=== PATIENT | female | born 1995 | race Caucasian/White ===

== ENCOUNTER 2017-11-07 18:22 | Emergency (ER) | payer BC ==
[2017-11-07 18:35] VITALS: BP 124/90; PULSE 95; TEMP 98.4; BMI 30.9
--- NOTE | 2017-11-07 19:05 | PDOC ---
History of Present Illness - General Chief Complaint: Cold Symptoms Stated Complaint: COLD SYMPTOMS Time Seen by Provider: 11/07/17 18:49 History Source: Patient Exam Limitations: No Limitations - History of Present Illness Initial Comments: CHIEF COMPLAINT: 21 y/o afebrile female c/o flu like symptoms that started today. HISTORY OF PRESENT ILLNESS: The patient states that today, out of nowhere, she all of a sudden felt chills and body aches all over. She states she has a slight cough and sore throat. She took theraflu 2 hours ago. She denies earache , runny nose, n/v/d, CP, SOB, abd pain. Past History - Past Medical History Allergies/Adverse Reactions: Allergies Allergy/AdvReac Type Severity Reaction Status Date / Time No Known Allergies Allergy Verified 11/07/17 18:29 Home Medications: Ambulatory Orders Oseltamivir Phosphate [Tamiflu -] 75 mg PO BID #10 capsule 11/07/17 Asthma: No Cancer: No Cardiac Disorders: No COPD: No Diabetes: No HTN: No Seizures: No Thyroid Disease: No - Immunization History Immunization Up to Date: Yes - Suicide/Smoking/Psychosocial Hx Smoking Status: No Smoking History: Former smoker Have you smoked in the past 12 months: Yes Number of Cigarettes Smoked Daily: 3 If you are a former smoker, when did you quit?: 07/2014 Information on smoking cessation initiated: No Hx Alcohol Use: No Drug/Substance Use Hx: No Hx Substance Use Treatment: No Review of Systems - Review of Systems Able to Perform ROS?: Yes Constitutional: Yes: Chills, Fever, Other (body aches) HEENTM: Yes: Throat Pain. No: Ear Pain, Ear Discharge, Nose Congestion, Difficulty Swallowing Respiratory: Yes: Cough. No: Shortness of Breath, Wheezing, Productive cough ABD/GI: No: Symptoms Reported *Physical Exam - Vital Signs Last Vital Signs Temp Pulse Resp BP Pulse Ox 98.4 F 95 H 18 124/90 99 11/07/17 18:29 11/07/17 18:29 11/07/17 18:29 11/07/17 18:29 11/07/17 18:29 - Physical Exam Comments: Non toxic appearing female in NAD or obvious discomfort. Red nose. General Appearance: Yes: Nourished, Appropriately Dressed. No: Apparent Distress HEENT: positive: EOMI, OANH, Pharyngeal Erythema, Nasal Congestion. negative: Muffled/Hoarse voice, Tonsillar Exudate, Tonsillar Erythema, Rhinorrhea, TM Dull , TM Erythema Neck: negative: Lymphadenopathy (R), Lymphadenopathy (L) Respiratory/Chest: positive: Lungs Clear, Normal Breath Sounds. negative: Wheezing Cardiovascular: positive: Regular Rhythm, Regular Rate Medical Decision Making - Medical Decision Making A/P: 21 y/o with early symptoms of the flu. Plan is to discharge to home with rx for tamiflu. Instructed her to alternate between tylenol and motrin, drink plenty of fluids and get lots of rest. Instructed her to return to the ER with any worsening or concerning symptoms. The patient verbalizes understanding of all instructions, has no further questions and is awaiting discharge. *DC/Admit/Observation/Transfer Diagnosis at time of Disposition: Influenza - Discharge Dispostion Disposition: HOME Condition at time of disposition: Good - Referrals Referrals: ON STAFF,NOT [Primary Care Provider] - - Patient Instructions Printed Discharge Instructions: DI for Influenza -- Adult Additional Instructions: Discharge Instructions: -You have the flu -A prescription for tamiflu has been sent to your pharmacy -Alternate between 650mg of tylenol and 600mg of motrin every 3 hours for fever -Get lots of rest -Drink plenty of fluids -Return to the ER with any worsening or concerning symptoms - Post Discharge Activity Forms/Work/School Notes: Back to Work
== END 2017-11-07 19:10 | disposition home or self-care (01) ==
LOC: JERFT 18:22
DX: J11.1 Influenza due to unidentified influenza virus with other respiratory manifestations (principal)
CPT/HCPCS: 99281-25